=== PATIENT | female | born 1980 | race Two or more races ===

== ENCOUNTER 2017-03-04 15:16 | Emergency (ER) | payer MEDICAID ==
[~2017-03-04] VITALS: Ht 165.1 cm; Wt 104.3 kg
[2017-03-04 17:04] LABS: Urine Bacteria FEW /hpf (None Seen); Urine Blood Negative /uL (Negative); Urine Mucus FEW (None Seen); Urine Specific Gravity 1.044 (1.001-1.035); Urine WBC 5 /hpf (0 - 5)
[2017-03-04 18:01] LABS: Basophils # (auto) 0 uL; Basophils % (auto) 0.3 % (0.0-2.0); Eosinophils # (auto) 0.2 uL; Eosinophils % (auto) 1.5 % (0.0-7.0); Hematocrit 46.5 % (36.0-46.0); Hemoglobin 15.9 g/dL (12.2-16.2); Lymphocytes # (auto) 0.7 uL; Lymphocytes % (auto) 5.2 % (10.0-50.0); Mean Corpuscular Hemoglobin 30.1 pg (28.0-32.0); Mean Corpuscular Hgb Conc. 34.2 g/dL (32.0-36.0); Mean Corpuscular Volume 87.8 fL (80.0-100.0); Monocytes # (auto) 0.7 uL; Monocytes % (auto) 4.9 % (0.0-12.0); Neutrophils # (auto) 12.1 uL; Neutrophils % (auto) 88.1 % (37.0-80.0); Platelet Count (auto) 205 10^3/uL (140-450); Red Blood Cells 5.29 10^6/uL (4.0-5.20); Red Cell Distribution Width 12.6 % (11.8-14.3); White Blood Cell 13.7 10^3/uL (4.4-10.8)
[2017-03-04 18:32] LABS: Albumin 4.1 g/dL (3.4-5.0); BUN/Creatinine Ratio 10.1; Bilirubin, Total 0.8 mg/dL (0.2-1.0); Calcium 9.3 mg/dL (8.5-10.1); Potassium 3.9 mmol/L (3.5-5.1); Total Protein 8.7 g/dL (6.4-8.2)
[2017-03-04] MEDS ORDERED: SODIUM CHLORIDE 0.9% 1,000 ML IV ONE ×2 (19:15→23:00)
[2017-03-04 21:03] VITALS: BP 131/81
[2017-03-04] MEDS ORDERED: ONDANSETRON HCL 4 MG/2 ML VIAL IV ONE (21:15)
[2017-03-04] MEDS ORDERED: ACETAMINOPHEN 500 MG TAB PO ONE (23:06)
[2017-03-04] MEDS ORDERED: ACETAMINOPHEN 325 MG TAB PO ONE (23:15)
== END 2017-03-04 23:20 | disposition home or self-care (01) ==
LOC: ER 15:16
DX: J02.9 Acute pharyngitis, unspecified (principal); E11.65 Type 2 diabetes mellitus with hyperglycemia
CPT/HCPCS: 36415; 71045; 80053; 81001; 81025; 82010; 85025; 87400; 96361; 96374; 99285; J2405; J7030; 82962